=== PATIENT | male | born 1995 | race Caucasian/White ===

== ENCOUNTER 2018-03-08 13:59 | Emergency (ER) | payer OTHER ==
[~2018-03-08] VITALS: Ht 180.3 cm; Wt 130.2 kg
[2018-03-08 14:04] VITALS: Ht 180.3 cm; Wt 130.2 kg
[2018-03-08 19:16] VITALS: BP 124/53
== END 2018-03-08 19:00 | disposition home or self-care (01) ==
LOC: ED 13:59
DX: N50.82 Scrotal pain (principal); N43.3 Hydrocele, unspecified; N45.3 Epididymo-orchitis
CPT/HCPCS: J2270; Q0092